=== PATIENT | male | born 1975 | race Caucasian/White ===

== ENCOUNTER 2024-07-10 20:00 | Emergency (ER) | payer MEDICAID, SELFPAY ==
[2024-07-10 20:03] VITALS: BP 158/90; PULSE 99; RESP 16; TEMP 36.7; O2SAT 98
--- OUTSIDE RECORDS SUMMARY | 2024-07-10 20:03 | XMS_ITS | Referral Summary ---
Author Organization [facility] Address [address] [place] [address] Care Team Providers Care Clinical Documentation Nurse Name Role [facility] C Primary Care Pro vider Source Comments [facility],non-[facility] Affiliates and Associated Physician Practices is amultiple site organization consisting of ambulatory clinics and hospital sitesin [place], [place], [place] and [place]. This disclosure is being madepursuant to the Care Everywhere program and may not contain all information available regarding this patient. Last updated 18.[facility] Allergies Active Allergy Reactions Criticality Noted Date Comments Codeine Urticaria Medium 08/31/2018 Morphine Nausea and/or Vomiting 10/10/2017 Pseudoephedrine Base Urticaria Medium 06/02/2017 Medications * Be aware that medications may not be up to date on this document. Alwaysverify current medications with the patient. Medication Sig Dispensed Refills Start Date End Date Status Misc. Devices (CRUTCHES) Use as directed 1 Each 09/07/2017 Active Nebulizers (DME MISC SUPPLY) Use as directed 1 Each 01/12/2018 Active hydrOXYzine hcl (ATARAX) 25 MG tabletIndications:Ra sh and other nonspecific skin eruption Take 1-2 tablets, every six hours, as needed. 90 tablet 2 04/12/2018 Active ivermectin (STROMECTOL) 3 MG tablet 04/19/2018 Active HYDROcodone-acetamin ophen (NORCO) 7.5-325 MG tablet Take 1 tablet by mouth every 6 hours as needed for Pain 60 tablet 11/02/2018 Active HYDROcodone-acetamin ophen (NORCO) 7.5-325 MG tablet Take 1 tablet by mouth every 6 hours as needed for Pain 120 tablet 12/28/2018 Active HYDROcodone-acetamin ophen (NORCO) 10-325 MG tablet Take 1 tablet by mouth every 6 hours as needed for Pain 120 tablet 12/28/2018 Active Active Problems Problem Noted Date Diagnosed Date Acute right ankle pain 09/15/2017 Pain of right foot 09/15/2017 Pes planus of right foot 09/15/2017 Social History Tobacco Use Types Packs/Day Years Used Date Smoking Tobacco: Some Days Cigarettes Smokeless Tobacco: Never Tobacco Cessation:Ready to Q uit: No; Counseling Given: Yes Alcohol Use Standard Drinks/Week Comments No 0 (1 standard drink = 0.6 oz pur e alcohol) Sex and Gender Information Value Date Recorded Sex Assigned at Not on file Gender Identity Not on file Sexual Orientation Not on file Last Filed Vital Signs Vital Sign Reading Time Taken Comments Blood Pressure 147/101 11/16/2018 8:53 AM CDT Pulse 104 11/16/2018 8:53 AM CDT Temperature 36.8 C (98.3 F) 11/16/2018 8:53 AM CDT Respiratory Rate 16 11/16/2018 8:53 AM CDT Oxygen Saturation 100% 10/16/2017 8:30 AM CDT Inhaled Oxygen Concentration - - Weight 129.3 kg (285 lb) 02/11/2019 10:50 AM CDT Height 190.5 cm (6' 3 ) 02/11/2019 10:50 AM CDT Body Mass Index 35.62 02/11/2019 10:50 AM CDT Functional Status Functional Status Response Date of Assess ment Is person deaf or have serious hearing difficult y? No 10/12/2017 Is person blind or have serious difficulty seein g? No 10/12/2017 Does person have serious dif ficulty walking/climbing stairs? Yes 10/12/2017 Does person have difficulty dressing/bathing? Ye s 10/12/2017 Does person have difficulty doing errands alone? Yes 10/12/2017 Cognitive Status Response Date of Assessm ent Does person have difficulty concentrating/remembering/making decisions? No 10/12/2017 Plan of Treatment Not on file Medical Devices Implanted Type Area Soccer Coach Device Identifier Shelf Expiration Date Model / Serial / Lot Flor Cellular Bone Matrix 5cc Implanted:Qty: 1 on 10/12/2017 by Kanu Oliveira DO at [facility] [employer] 02/08/2018 BL-1500-00 2 / / [id number] Description:BL-1500-002. Dep uy Synthes Screw 3.5mm 36mm T15 Cortx Slf-Tap Lopro Implanted:Qty: 1 on 10/12/2017 by Kanu Oliveira DO at [facility] Right: Ankle [employer] [id number] / / Screw 3.5mm 6mm 65mm Ft Hex Sm Bone Riaz Implanted:Qty: 1 on 10/12/2017 by Kanu Oliveira DO at [facility] Right: Ankle [employer] [id number] / / 3.5mm Va-Lcp Medial Column Fusion Plate Implanted:Qty: 1 on 10/12/2017 by Kanu Oliveira DO at [facility] Right: Ankle 02.211.416 / / 3.5mm Va-Lcp Medial Column Fusion Plates, Talus Extension Implanted:Qty: 1 on 10/12/2017 by Kanu Oliveira DO at [facility] Right: Ankle 02.211.420 / / 3.5mm Variable Angle Locking Screws, Self-Tapping, T15 Stardrive Implanted:Qty: 1 on 10/12/2017 by Kanu Oliveira DO at [facility] Right: Ankle [employer] 02.127.132 / / 3.5mm Variable Angle Locking Screws, Self-Tapping, T15 Stardrive Implanted:Qty: 1 on 10/12/2017 by Kanu Oliveira DO at [facility] Right: Ankle [employer] 02.127.148 / / 3.5mm Variable Angle Locking Screws, Self-Tapping, T15 Stardrive Implanted:Qty: 1 on 10/12/2017 by Kanu Oliveira DO at [facility] Right: Ankle [employer] 02.127.160 / / 3.5mm Cortex Screws, Low-Profile Head, Self-Tapping, T15 Stardrive Implanted:Qty: 1 on 10/12/2017 by Kanu Oliveira DO at [facility] Right: Ankle S[employer] 02.206.222 / / Vivigen Cellular Bone Matrix 1cc Implanted:Qty: 1 on 10/12/2017 by Kanu Oliveira DO at [facility] [employer] 01/13/2018 - [id number] Description:[employer] Vivigen Cellular Bone Matrix 1cc Implanted:Qty: 1 on 10/12/2017 by Kanu Oliveira DO at [facility] [employer] 02/08/2018 [id number] Description:[employer] Vivigen Cellular Bone Matrix 1cc Implanted:Qty: 1 on 10/12/2017 by Kanu Oliveira DO at [facility] [employer] 02/08/2018 [id number] Description:[employer] Cannulated Screw Implanted:Qty: 1 on 10/12/2017 by Kanu Oliveira DO at [facility] Right: Ankle fully threaded [id number] / / Screw Bn 3.5mm 30mm Lcp Ss T15 Periart Implanted:Qty: 1 on 10/12/2017 by Kanu Oliveira DO at [facility] Right: Ankle [employer] 02.127.130 / / Screw 3.5mm 40mm T15 Mtphsl Slf-Tap Lck Implanted:Qty: 2 on 10/12/2017 by Kanu Oliveira DO at [facility] Right: Ankle [employer] 02.127.140 / / Explanted Type Area Soccer Coach Device Identifier Shelf Expiration Date Model / Serial / Lot 2.8 Mm Compression Wires, 200mm Implanted:Qty: 2 Explanted:Qty: 2 on 10/12/2017 at [facility] Right: Ankle [employer] 03.118.030 / / Guide Pin Explanted:Qty: 1 on 10/12/2017 at [facility] Right: Ankle [id number] 0 / / Wire K .045in 6in 2 Troc Smth Fx Strl Explanted:Qty: 1 on 10/12/2017 at [facility] Right: Ankle [employer] [id number] / / Advance Directives * Full Code (Latest Code Status on File) Date Activated Date Inactivated Comments 10/12/2017 5:38 PM 10/16/2017 5:10 PM * Full Code Date Activated Date Inactivated Comments 10/12/2017 6:17 AM 10/12/2017 5:38 PM Care Teams Clinical Documentation Nurse Relationship Specialty Start Date End Date [facility], [facility] [address] [place] [address] [phone] PCP - General Mailroom Associate 06/01/17
--- OUTSIDE RECORDS SUMMARY | 2024-07-10 20:03 | XMS_ITS | Encounter Summary ---
Author Organization [facility] Address [address] [place] [address] Care Team Providers Care Stock Patcher Name [facility] C Primary Care Pro vider Ronit Crouch E [employer]ER[employer] DEVELOPER-WELLNESS GUIDE Unavailable Encounter Details Date Type Department Care Team (Late st Contact Info) Description 11/02/2018 Telephone [facility] [address] [place] [address] Kanu Oliveira, DO [address] [facility] [address] [place] [address] Social History Tobacco Use Types Packs/Day Years Used Date Smoking Tobacco: Some Days Cigarettes Smokeless Tobacco: Never Alcohol Use Standard Drinks/Week Comments No 0 (1 standard drink = 0.6 oz pur e alcohol) Sex and Gender Information Value Date Recorded Sex Assigned at Not on file Gender Identity Not on file Sexual Orientation Not on file documented as of this encounter Functional Status Functional Status Response Date of [...] person have difficulty concentrating/remembering/making decisions? No 10/12/2017 documented as of this encounter Miscellaneous Notes * Telephone Encounter - Alcides De Leon - 11/02/2018 1:08 PM CDT Spoke with Dr. Oliveira about patient documented in this encounter Plan of Treatment Not on file documented as of this encounter Visit Diagnoses Diagnosis Arthritis, midfoot- Primary Unspecified arthropathy, ankle and foot documented in this encounter Care Teams Stock Patcher Relationship Specialty Start Date End Date [facility] [address] [place] [address] PCP - General Photography Spotter 06/01/17 Ronit Crouch, E [employer] DEVELOPER-WELLNESS GUIDE [address] [place] [address] PCP - Attributed-[employer] [place] 08/03/20 09/20/22 documented as of this encounter
--- OUTSIDE RECORDS SUMMARY | 2024-07-10 20:03 | XMS_ITS | Patient Health Summary ---
Author Organization [facility] [employer] Address [address] [place] [address] Care Team Providers Care Vehicle Upholsterer Name Role [facility] C Primary Care Pro vider Note from [facility],non-owned Affiliates and Associated Physician Practices is amultiple site organization consisting of ambulatory clinics and hospital sitesin [place], [place], [place] and [place]. This disclosure is being madepursuant to the Care Everywhere program and may not contain all information available regarding this patient. Last updated 18.[facility] Allergies * Codeine(Urticaria) -Medium Criticality * Morphine(Nausea and/or Vomiting) * Pseudoephedrine Base(Urticaria) -Medium Criticality Medications * Be aware that medications may not be up to date on this document. Alwaysverify current medications with the patient. * Misc. Devices (CRUTCHES)(Started 09/07/2017) Use as directed * Nebulizers (DME MISC SUPPLY)(Started 01/12/2018) Use as directed * hydrOXYzine hcl (ATARAX) 25 MG tablet(Started 04/12/2018) Take 1-2 tablets, every six hours, as needed. 2 refills remaining * ivermectin (STROMECTOL) 3 MG tablet(Started 04/19/2018) * HYDROcodone-acetaminophen (NORCO) 7.5-325 MG tablet(Started 11/02/2018) Take 1 tablet by mouth every 6 hours as needed for Pain * HYDROcodone-acetaminophen (NORCO) 7.5-325 MG tablet(Started 12/28/2018) Take 1 tablet by mouth every 6 hours as needed for Pain * HYDROcodone-acetaminophen (NORCO) 10-325 MG tablet(Started 12/28/2018) Take 1 tablet by mouth every 6 hours as needed for Pain Active Problems Problem Noted Date Diagnosed Date [...] Mass Index 35.62 02/11/2019 10:50 AM CDT Medical Devices Implanted Type Area Wooden Frame Builder Device Identifier Shelf Expiration Date Model / Serial / Lot Vivigen Cellular Bone Matrix 5cc Implanted:Qty: 1 on 10/12/2017 by Kanu Oliveira DO at [facility] [employer] 02/08/2018 BL-1500-00 [id number] Description:BL-1500-002. Dep uy Synthes Screw 3.5mm 36mm T15 Cortx Slf-Tap Lopro Implanted:Qty: 1 on 10/12/2017 by Kanu Oliveira DO at [facility] Right: Ankle [employer] [id number] / / Screw 3.5mm 6mm 65mm Ft Hex Sm Bone Riaz Implanted:Qty: 1 on 10/12/2017 by Kanu Oliveira DO at [facility] Right: Ankle [employer]sa [id number] / / 3.5mm Va-Lcp Medial Column Fusion Plate Implanted:Qty: 1 on 10/12/2017 by Kanu Oliveira DO at [facility] Right: Ankle [id number] / / 3.5mm Va-Lcp Medial Column Fusion Plates, Talus Extension Implanted:Qty: 1 on 10/12/2017 by Kanu Oliveira DO at [facility] Right: Ankle [id number] / / 3.5mm Variable Angle Locking Screws, Self-Tapping, T15 Stardrive Implanted:Qty: 1 on 10/12/2017 by Kanu Oliveira DO at [facility] Right: Ankle [employer] Usa 02.127.132 / / 3.5mm Variable Angle Locking Screws, Self-Tapping, T15 Stardrive Implanted:Qty: 1 on 10/12/2017 by Kanu Oliveira DO at [facility] Right: Ankle [employer]sa 02.127.148 / / 3.5mm Variable Angle Locking Screws, Self-Tapping, T15 Stardrive Implanted:Qty: 1 on 10/12/2017 by Kanu Oliveira DO at [facility] Right: Ankle [employer]sa 02.127.160 / / 3.5mm Cortex Screws, Low-Profile Head, Self-Tapping, T15 Stardrive Implanted:Qty: 1 on 10/12/2017 by Kanu Oliveira DO at [facility] Right: Ankle S[employer] Usa [id number] / / Vivigen Cellular Bone Matrix 1cc Implanted:Qty: 1 on 10/12/2017 by Kanu Oliveira DO at [facility] [employer] 01/13/2018 BL-1500-00 [id number] Description:[employer] Vivigen Cellular Bone Matrix 1cc Implanted:Qty: 1 on 10/12/2017 by Kanu Oliveira DO at [facility] [employer] 02/08/2018 BL-1500 [id number] Description:[employer] Vivigen Cellular Bone Matrix 1cc Implanted:Qty: 1 on 10/12/2017 by Kanu Oliveira DO at [facility] [employer] 02/08/2018 BL-1500 [id number] Description:[employer] Cannulated Screw Implanted:Qty: 1 on 10/12/2017 by Kanu Oliveira DO at [facility] Right: Ankle fully threaded [id number] / / Screw Bn 3.5mm 30mm Lcp Ss T15 Periart Implanted:Qty: 1 on 10/12/2017 by Kanu Oliveira DO at [facility] Right: Ankle [employer] Usa 02.127.130 / / Screw 3.5mm 40mm T15 Mtphsl Slf-Tap Lck Implanted:Qty: 2 on 10/12/2017 by Kanu Oliveira DO at [facility] Right: Ankle [employer]sa 02.127.140 / / Explanted Type Area Wooden Frame Builder Device Identifier Shelf Expiration Date Model / Serial / Lot 2.8 Mm Compression Wires, 200mm Implanted:Qty: 2 Explanted:Qty: 2 on 10/12/2017 at [facility] Right: Ankle [employer] Usa [id number] / / Guide Pin Explanted:Qty: 1 on 10/12/2017 at [facility] Right: Ankle [id number] 0 / / Wire K .045in 6in 2 Troc Smth Fx Strl Explanted:Qty: 1 on 10/12/2017 at [facility] Right: Ankle [employer] [id number] / / Procedures * XR FOOT RIGHT 3VW OR MORE(Performed 07/13/2018) Performed for Right foot pain * CT FOOT RIGHT WO CONTRAST(Performed 05/04/2018) Performed for Pes planus of right foot * XR FOOT RIGHT 3VW OR MORE(Performed 04/20/2018) Performed for Right foot pain * PA BIOPSY OF SKIN LESION(Performed 04/12/2018) Performed for Rash and other nonspecific skin eruption * PA BIOPSY, EACH ADDED LESION(Performed 04/12/2018) Performed for Rash and other nonspecific skin eruption * DERMATOPATHOLOGY(Performed 04/12/2018) Performed for Rash and other nonspecific skin eruption * XR FOOT RIGHT 3VW OR MORE(Performed 02/14/2018) Performed for Pes planus of right foot * XR FOOT RIGHT 3VW OR MORE(Performed 01/12/2018) Performed for Pain of right foot * XR FOOT RIGHT 3VW OR MORE(Performed 12/01/2017) Performed for Right foot pain * XR FOOT RIGHT 3VW OR MORE(Performed 11/03/2017) Performed for Right foot pain * BASIC METABOLIC PANEL (CALCIUM TOTAL)(Performed 10/16/2017) Performed for Acute right ankle pain * CBC W/O DIFFERENTIAL(Performed 10/16/2017) Performed for Acute right ankle pain * BASIC METABOLIC PANEL (CALCIUM TOTAL)(Performed 10/15/2017) Performed for Acute right ankle pain * CBC W/O DIFFERENTIAL(Performed 10/15/2017) Performed for Acute right ankle pain * BASIC METABOLIC PANEL (CALCIUM TOTAL)(Performed 10/14/2017) Performed for Acute right ankle pain * CBC W/O DIFFERENTIAL(Performed 10/14/2017) Performed for Acute right ankle pain * BASIC METABOLIC PANEL (CALCIUM TOTAL)(Performed 10/13/2017) Performed for Acute right ankle pain * CBC W/O DIFFERENTIAL(Performed 10/13/2017) Performed for Acute right ankle pain * PULSE OXIMETRY, CONTINUOUS(Performed 10/12/2017) * XR FOOT RIGHT 3VW OR MORE(Performed 10/12/2017) Performed for Pes planus of right foot * FL ERICA SURGERY(Performed 10/12/2017) Performed for Acute right ankle pain * GRAFT BONE ILIAC(Performed 10/12/2017) Performed for Pes planus of right foot * ARTHRODESIS/FUSION TARSOMETATARSAL (FOOT)(Performed 10/12/2017) Performed for Pes planus of right foot * ENDOTRACHEAL TUBE NOTE(Performed 10/12/2017) * XR ANKLE RIGHT 3VW OR MORE(Performed 09/07/2017) Performed for Swelling of limb * XR FOOT RIGHT 3VW OR MORE(Performed 06/02/2017) Performed for Pain in joint involving right ankle and foot Results * XR FOOT RIGHT 3VW OR MORE (07/13/2018 9:50 AM ENDLESS TRACK VEHICLE SUPERVISOR) Only the most recent of8 resultswithin the time period is included. Anatomical Region Laterality Modality Ankle / Foot Radiographic Adore ging 07/13/2018 9:56 AM ENDLESS TRACK VEHICLE SUPERVISOR Impressions 07/13/2018 9:58 AM ENDLESS TRACK VEHICLE SUPERVISOR Extensive medial midfoot and hindfoot fixation and posterior subtalar arthrodesis without evidence of instrumentation failure. Reading Radiologist: David Ojeda MD on 07/13/2018 at 9:58 AM Narrative 07/13/2018 9:58 AM ENDLESS TRACK VEHICLE SUPERVISOR Examination: Right foot 3 views History: Right foot pain Findings: 3 views of the right foot were performed with comparison made to 04/20/2018. Medial mid foot fixation is again noted with a fixation plate extending from the talonavicular joint of the first metatarsal as well as a medial plate extending from the medial hindfoot to the midfoot. Instrumented posterior subtalar arthrodesis is also noted. There is no acute fracture. There is a first metatarsal head bunion and mild great toe osteoarthritis. Procedure Note David Ojeda MD - 07/13/2018 Examination: Right foot 3 views History: Right foot pain Findings: 3 views of the right foot were performed with comparison made to 04/20/2018. Medial mid foot fixation is again noted with a fixation plate extending from the talonavicular joint of the first metatarsal as well as a medial plate extending from the medial hindfoot to the midfoot. Instrumented posterior subtalar arthrodesis is also noted. There is no acute fracture. There is a first metatarsal head bunion and mild great toe osteoarthritis. IMPRESSION Extensive medial midfoot and hindfoot fixation and posterior subtalar arthrodesis without evidence of instrumentation failure. Reading Radiologist: David Ojeda MD on 07/13/2018 at 9:58 AM Kanu Oliveira DO DIAGNOSTIC IMAGING O RDERABLES * CT FOOT RIGHT WO CONTRAST (05/04/2018 7:58 AM ENDLESS TRACK VEHICLE SUPERVISOR) Anatomical Region Laterality Modality Computed Tomogra phy 05/04/2018 9:17 AM ENDLESS TRACK VEHICLE SUPERVISOR Impressions 05/06/2018 5:52 PM ENDLESS TRACK VEHICLE SUPERVISOR 1. Partial bony fusion of the talocalcaneal joint. No evidence of hardware loosening. 2. Fusion of the medial mid foot tarsals and metatarsals 3. Swelling over the dorsum of the foot. Reading Radiologist: Antony Obregon MD on 05/06/2018 at 5:52 PM Narrative 05/06/2018 5:52 PM ENDLESS TRACK VEHICLE SUPERVISOR CT right foot, noncontrast DATE: 05/04/2018. 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 Fusion in October 2017. TECHNIQUE: Multidetector nonenhanced CT through the right foot and ankle with triplanar reformations. COMPARISONS: Recent foot plain films. FINDINGS: A lag screw traverses the tibiotalar joint and appears intact and without surrounding loosening. The joint space has hypertrophic and sclerotic bone indicating healing. A serpiginous lucency is noted between portions of the talus and calcaneus. However there appear to be a few areas of partial solid bony fusion as seen on the coronal views. Evaluation is somewhat limited by artifact from the adjacent hardware. Additional medial foot fusion hardware extends from the base of the first metatarsal into the proximal foot and is anchored with numerous screws. No loosening is noted around the hardware and there is no evidence of hardware failure bony fusion is noted between the cuboid and medial cuneiform. There is likely bony fusion of the medial cuneiform with the first metatarsal but the joint is partially obscured by artifact from metal hardware. There is no fracture. The phalanges remain intact. There is soft tissue edema over the dorsum of the foot but no fluid collection. There is localized soft tissue swelling or scarring in the anterior portion of the ankle. Procedure Note Antony Obregon MD - 05/06/2018 CT right foot, noncontrast DATE: 05/04/2018. 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 Fusion in October 2017. TECHNIQUE: Multidetector nonenhanced CT through the right foot and ankle with triplanar reformations. COMPARISONS: Recent foot plain films. FINDINGS: A lag screw traverses the tibiotalar joint and appears intact and without surrounding loosening. The joint space has hypertrophic and sclerotic bone indicating healing. A serpiginous lucency is noted between portions of the talus and calcaneus. However there appear to be a few areas of partial solid bony fusion as seen on the coronal views. Evaluation is somewhat limited by artifact from the adjacent hardware. Additional medial foot fusion hardware extends from the base of the first metatarsal into the proximal foot and is anchored with numerous screws. No loosening is noted around the hardware and there is no evidence of hardware failure bony fusion is noted between the cuboid and medial cuneiform. There is likely bony fusion of the medial cuneiform with the first metatarsal but the joint is partially obscured by artifact from metal hardware. There is no fracture. The phalanges remain intact. There is soft tissue edema over the dorsum of the foot but no fluid collection. There is localized soft tissue swelling or scarring in the anterior portion of the ankle. IMPRESSION 1. Partial bony fusion of the talocalcaneal joint. No evidence of hardware loosening. 2. Fusion of the medial mid foot tarsals and metatarsals 3. Swelling over the dorsum of the foot. Reading Radiologist: Antony Obregon MD on 05/06/2018 at 5:52 PM Percy Velasquez MD CT ORDERABLES * PA BIOPSY, EACH ADDED LESION, PA BIOPSY OF SKIN LESION (04/12/2018 3:17 PM ENDLESS TRACK VEHICLE SUPERVISOR) Narrative Donna Sanford MD - 04/12/2018 3:17 PM ENDLESS TRACK VEHICLE SUPERVISOR Josiah Godwin MD 04/12/2018 2:01 PM Risks, benefits and alternatives to punch biopsy were discussed with the patient. Verbal consent was obtained. Location: R superior and inferior elbow Punch biopsy: 4mm Skin prep: Alcohol Anesthesia: 1% lidocaine with epinephrine Closure: 4-0 nylon suture Dressing and wound care discussed. Patient agrees to phone call for results and message if not available. Josiah Godwin M.D. PGY-3 dermatology resident Donna Sanford MD PROCEDURE/MINOR CALIN GICAL ORDERABLES * DERMATOPATHOLOGY (04/12/2018 12:00 AM ENDLESS TRACK VEHICLE SUPERVISOR) Case Report Dermatopathology Report Case: [id number] Authorizing Provider: Donna Sanford MD Collected: 04/12/2018 12:00 AM Ordering Location: [facility] Received: 04/13/2018 07:44 AM Dermatology Pathologist: Marnie Govea MD Specimens: A) - Skin, right superior elbow B) - Skin, right inferior elbow 1:11 PM ENDLESS TRACK VEHICLE SUPERVISOR DERMATOPATHOLOGY LABORATORY Final Diagnosis Specimen A. SKIN, right superior elbow: SUPERFICIAL AND DEEP PERIVASCULAR LYMPHOCYTIC INFILTRATE WITH EOSINOPHILS (L98.9) (see microscopic description and comment) Specimen B. SKIN, right inferior elbow: EPIDERMAL NECROSIS SUGGESTIVE OF EXCORIATION (L98.499) SUPERFICIAL PERIVASCULAR LYMPHOCYTIC INFILTRATE WITH EOSINOPHILS (L27.0) (see microscopic description and comment) 1:11 PM [facility] DERMATOPATHOLOGY LABORATORY Clinical History A-B: LP vs ACD vs scabies vs prurigo simplex vs other. 1:11 PM [facility] DERMATOPATHOLOGY LABORATORY Gross Description Specimen A: Received is one formalin filled container labeled with the patient's name and designated right superior elbow. The specimen consists of a punch biopsy measuring [id number], bisected. Jar 0. Specimen B: Received is one formalin filled container labeled with the patient's name and designated right inferior elbow. The specimen consists of a punch biopsy measuring [id number], bisected. Jar 0. 1:11 PM [facility] DERMATOPATHOLOGY LABORATORY Microscopic Description Specimen A. SKIN, right superior elbow: The epidermis is unremarkable. There is a superficial and deep perivascular and interstitial infiltrate of lymphocytes with numerous eosinophils. COMMENT: The differential diagnosis for these histologic findings includes an arthropod bite reaction, a drug eruption, and less likely a contact dermatitis given the lack of epidermal change. Clinicopathologic correlation is recommended. Specimen B. SKIN, right inferior elbow: The epidermis is focally necrotic and covered with a scale-crust. There is fibrin at the base. Sections show a largely superficial perivascular and interstitial infiltrate including lymphocytes and eosinophils. COMMENT: See comment for Specimen A. 1:11 PM [facility] DERMATOPATHOLOGY LABORATORY Disclaimer An external and internal positive and negative controls are appropriate for the histochemical, immunohistochemical and immunofluorescence stain(s) in this case (if any), except where stated explicitly. The performance characteristics of the stain(s) cited in this report were developed and its performance characteristic determined by the Dermatopathology Laboratory at [facility]. These tests need not be, and therefore are not, approved by the [place] Food and Drug Administration. The tests are used for clinical purposes. Billing Codes Specimen Charges Stain Charges 32280 66787 1 1 1:11 PM [facility] DERMATOPATHOLOGY LABORATORY Embedded Images 11/12/201 8 1:11 PM ENDLESS TRACK VEHICLE SUPERVISOR DERMATOPATHOLOGY LABORATORY Pathology/Cytology TISSUE SPECIMEN FROM SKIN / Unknown 04/12/2018 04/13/2018 7:44 AM ENDLESS TRACK VEHICLE SUPERVISOR Miscellaneous samples (specimen) TISSUE SPECIMEN FROM SKIN / Unknown 04/12/2018 04/13/2018 7:44 AM ENDLESS TRACK VEHICLE SUPERVISOR Donna Sanford MD LAB - PATHOLOGY/CYT OLOGY ORDERABLES DERMATOPATHOLOGY LABORATORY [facility] - Department of Dermatology [address] [place] [address], 5[address] Floor Lab [address] [phone] * (ABNORMAL) CBC W/O DIFFERENTIAL (10/16/2017 3:39 AM CDT) Only the most recent of4 resultswithin the time period is included. WBC 11.2(H) 3.5 - 10.5 10 3/uL 10/16/2017 4:01 AM [facility] RBC 4.08(L) 4.30 - 5.70 10 6/uL 10/16/2017 4:01 AM [facility] Hemoglobin 12.6(L) 13.5 - 17.5 g/dL 10/16/2017 4:01 AM [facility] Hematocrit 37.3(L) 39.0 - 50.0 % 10/16/2017 4:01 AM [facility] MCV 91.4 81.0 - 97.0 fL 10/16/2017 4:01 AM [facility] MCH 30.9 28.0 - 34.0 pg 10/16/2017 4:01 AM [facility] MCHC 33.8 32.0 - 36.0 g/dL 10/16/2017 4:01 AM [facility] Platelet Count 254 150 - 400 10 3/uL 10/16/2017 4:01 AM [facility] RDW-SD 42.8 36.0 - 50.0 fL 10/16/2017 4:01 AM [facility] RDW-CV 12.8 11.2 - 14.8 % 10/16/2017 4:01 AM [facility] MPV 9.6 9.3 - 12.8 fL 10/16/2017 4:01 AM [facility] Blood BLOOD SPECIMEN / Unknown 10/16/2017 3:39 AM CDT 10/16/2017 3:47 AM CDT Tj Montilla MD LAB - HEMATOLOGY ORD ERABLES [facility] [address] [phone] * BASIC METABOLIC PANEL (CALCIUM TOTAL) (10/16/2017 3:39 AM CDT) Only the most recent of4 resultswithin the time period is included. BUN 10 7 - 26 mg/dL 10/16/2017 4:20 AM [facility] Creatinine 0.9 0.6 - 1.2 mg/dL 10/16/2017 4:20 AM [facility] Sodium 139 136 - 145 mmol/L 10/16/2017 4:20 AM [facility] Potassium 3.8 3.5 - 4.5 mmol/L 10/16/2017 4:20 AM [facility] Chloride 104 98 - 107 mmol/L 10/16/2017 4:20 AM [facility] CO2 23 22 - 29 mmol/L 10/16/2017 4:20 AM [facility] Glucose 106 70 - 115 mg/dL 10/16/2017 4:20 AM [facility] Calcium 8.6 8.4 - 10.2 mg/dL 10/16/2017 4:20 AM [facility] Anion Gap 16 8 - 18 10/16/2017 4:20 AM [facility] BUN/Creatinine Ratio 11 7 - 23 10/16/2017 4:20 AM [facility] Osmolality Calculated 287 270 - 300 mOsm/kg 10/16/2017 4:20 AM [facility] eGFR >60 >60 mL/min/1.7 3 m2 10/16/2017 4:20 AM [facility] Blood BLOOD SPECIMEN / Unknown 10/16/2017 3:39 AM CDT 10/16/2017 3:47 AM CDT Tj Montilla MD LAB - CHEMISTRY [facility]BERTO GALARZA [address] [phone] * FL ERICA SURGERY (10/12/2017 2:44 PM CDT) Narrative [facility] - 10/12/2017 2:44 PM CDT Fluoroscopy was used for this exam in the OR. Please see the Operative report. Kanu Oliveira DO FLUOROSCOPY ORDERABL ES Performing Organization Address City/[facility]/ZIP Co de Phone Number [facility] * XR ANKLE RIGHT 3VW OR MORE (09/07/2017 10:17 PM CDT) Anatomical Region Laterality Modality Lower Extremity Radiographic Adore ging 09/08/2017 7:49 AM CDT Impressions 09/08/2017 7:51 AM CDT 1. No fracture 2. 2 conference of soft tissue swelling. 3. Pes planus Narrative 09/08/2017 7:51 AM CDT Right ankle, 3 views DATE: 09/07/2017. INDICATION: Progressive ankle pain and swelling. Findings: The soft tissues are swollen circumferentially around the ankle. There is no fracture or dislocation. The tibiotalar articulation is normally aligned but there is mild flattening of the talar articular surface compatible with chronic degenerative change. Also noted is flattening of the arch of the foot. There is a degenerative cyst in the distal fibula. Procedure Note Antony Obregon MD - 09/08/2017 Right ankle, 3 views DATE: 09/07/2017. INDICATION: Progressive ankle pain and swelling. Findings: The soft tissues are swollen circumferentially around the ankle. There is no fracture or dislocation. The tibiotalar articulation is normally aligned but there is mild flattening of the talar articular surface compatible with chronic degenerative change. Also noted is flattening of the arch of the foot. There is a degenerative cyst in the distal fibula. IMPRESSION 1. No fracture 2. 2 conference of soft tissue swelling. 3. Pes planus Ryland Andrews DO DIAGNOSTIC IMAGING O RDERABLES Care Teams Vehicle Upholsterer Relationship Specialty Start Date End Date [facility], [facility] [address] [place] [phone] PCP - General General Manager Road Production 06/01/17
--- OUTSIDE RECORDS SUMMARY | 2024-07-10 20:03 | XMS_ITS | Clinical Summary ---
Author Organization [facility] [employer] Address [address] [facility] [place] [address] Care Team Providers Care Staff Genetic Counselor Name Role Phone [facility] C Primary Care Pro vider Source Comments [facility] Affiliates and Associated Physician Practices is amultiple site organization consisting of ambulatory clinics and hospital sitesin [place], [place], [place] and [place]. This disclosure is being madepursuant to the Care Everywhere program and may not contain all information available regarding this patient. Last updated 18.[facility] [employer] Allergies Active Allergy Reactions Criticality Noted Date [...] 09/15/2017 Pes planus of right foot 09/15/2017 Family History Medical History Relation Name Comments Asthma Neg Hx CVA Neg Hx Cancer - Breast Neg Hx Cancer - Other Neg Hx Cancer - Skin, Melanoma Neg Hx Cancer - Skin, Non Melanoma Neg Hx Eczema Neg Hx Hemophilia Neg Hx Psoriasis Neg Hx Social History Tobacco Use Types Packs/Day Years [...] Mass Index 35.62 02/11/2019 10:50 AM CDT Plan of Treatment Health Maintenance Due Date Last Done Comments COLOGUARD (AGES 45-75) - COL ON CA SCREENING 1975 COLON MONITORING 1975 COLONOSCOPY - COLON CA SCREENING 1975 CT COLONOGRAPHY - COLON CA SCREENING 1975 Colorectal Cancer Screening 1975 FIT - COLON CA SCREENING 1975 FLEX SIG - COLON CA SCREENING 1975 LIPID TESTING 1975 Opioid Medication Agreement - Annual 1975 HIV SCREENING 1990 HEPATITIS C SCREENING 02/21/1993 DTAP/TDAP/TD VACCINES (1 - Tdap) 1994 HEPATITIS B VACCINE (1 of 3 - 19+ 3-dose series) 1994 PNEUMOCOCCAL VACCINE (1 of 2 - PCV) 1994 COVID-19 VACCINE (1 - 2023-2 5 season) 2024 INFLUENZA VACCINE (#1) 2024 DEPRESSION SCREENING 06/05/2024 ZOSTER VACCINE (1 of 2) 2025 HIB VACCINE Aged Out No longer eligi ble based on patient's age to complete this topic HPV VACCINE Aged Out No longer eligi ble based on patient's age to complete this topic MENINGOCOCCAL (Group B) VACCINE Aged Out No longer eligible based on patient's age to complete this topic MENINGOCOCCAL VACCINE Aged Out No hermilo doug eligible based on patient's age to complete this topic Medical Devices Implanted Type Area Advertising Analyst Device Identifier Shelf Expiration Date Model / Serial / Lot Vivigen Cellular Bone Matrix 5cc Implanted:Qty: 1 on 10/12/2017 by Kanu Oliveira DO at [facility] [employer] 02/08/2018 BL-1500-00 2 / / [id number] Description:BL-1500-002. Dep uy Synthes Screw 3.5mm 36mm T15 Cortx Slf-Tap Lopro Implanted:Qty: 1 on 10/12/2017 by Kanu Oliveira DO at [facility] Right: Ankle Synthes Usa 02.206.236 / / Screw 3.5mm 6mm 65mm Ft Hex Sm Bone Riaz Implanted:Qty: 1 on 10/12/2017 by Kanu Oliveira DO at [facility] Right: Ankle Synthes Usa 204.865 / / 3.5mm Va-Lcp Medial Column Fusion Plate Implanted:Qty: 1 on 10/12/2017 by Kanu Oliveira DO at [facility] Right: Ankle 02.211.416 / / 3.5mm Va-Lcp Medial Column Fusion Plates, Talus Extension Implanted:Qty: 1 on 10/12/2017 by Kanu Oliveira DO at [facility] Right: Ankle 02.211.420 / / 3.5mm Variable Angle Locking Screws, Self-Tapping, T15 Stardrive Implanted:Qty: 1 on 10/12/2017 by Kanu Oliveira DO at [facility] Right: Ankle Synthes Usa 02.127.132 / / 3.5mm Variable Angle Locking Screws, Self-Tapping, T15 Stardrive Implanted:Qty: 1 on 10/12/2017 by Kanu Oliveira DO at [facility] Right: Ankle Synthes Usa 02.127.148 / / 3.5mm Variable Angle Locking Screws, Self-Tapping, T15 Stardrive Implanted:Qty: 1 on 10/12/2017 by Kanu Oliveira DO at [facility] Right: Ankle Synthes Usa 02.127.160 / / 3.5mm Cortex Screws, Low-Profile Head, Self-Tapping, T15 Stardrive Implanted:Qty: 1 on 10/12/2017 by Kanu Oliveira DO at [facility] Right: Ankle Synthes Usa 02.206.222 / / Vivigen Cellular Bone Matrix 1cc Implanted:Qty: 1 on 10/12/2017 by Kanu Oliveira DO at [facility] [employer] 01/13/2018 BL-1500 [id number] Description:[employer] Vivigen Cellular Bone Matrix 1cc Implanted:Qty: 1 on 10/12/2017 by Kanu Oliveira DO at [facility] [employer] 02/08/2018 BL-1500 [id number] 00 Description:[employer] Vivigen Cellular Bone Matrix 1cc Implanted:Qty: 1 on 10/12/2017 by Kanu Oliveira DO at [facility] [employer] 02/08/2018 BL-150000 [id number] 01 Description:[employer] Cannulated Screw Implanted:Qty: 1 on 10/12/2017 by Kanu Oliveira DO at [facility] Right: Ankle fully threaded 1147-095-6 7 / / Screw Bn 3.5mm 30mm Lcp Ss T15 Periart Implanted:Qty: 1 on 10/12/2017 by Kanu Oliveira DO at [facility] Right: Ankle Synthes Usa 02.127.130 / / Screw 3.5mm 40mm T15 Mtphsl Slf-Tap Lck Implanted:Qty: 2 on 10/12/2017 by Kanu Oliveira DO at [facility] Right: Ankle Synthes Usa 02.127.140 / / Explanted Type Area Advertising Analyst Device Identifier Shelf Expiration Date Model / Serial / Lot 2.8 Mm Compression Wires, 200mm Implanted:Qty: 2 Explanted:Qty: 2 on 10/12/2017 at [facility] Right: Ankle Synthes Usa 03.118.030 / / Guide Pin Explanted:Qty: 1 on 10/12/2017 at [facility] Right: Ankle 1147-088-0 0 / / Wire K .045in 6in 2 Troc Smth Fx Strl Explanted:Qty: 1 on 10/12/2017 at [facility] Right: Ankle [employer] [id number] / / Advance Directives * Full Code (Latest Code Status on File) Date Activated Date Inactivated Comments 10/12/2017 5:38 PM 10/16/2017 5:10 PM * Full Code Date Activated Date Inactivated Comments 10/12/2017 6:17 AM 10/12/2017 5:38 PM Care Teams Staff Genetic Counselor Relationship Specialty Start Date End Date [facility] [address] [place] [phone] PCP - General Tacker Off 06/01/17
--- OUTSIDE RECORDS SUMMARY | 2024-07-10 20:03 | XMS_ITS | Encounter Summary ---
Author Organization [facility] Address [address] [place] [address] Care Team Providers Care Galley Worker Name Role Phone [facility] Primary Care Pro vider Ronit Crouch MARINE HABITAT RESOURCE SPECIALIST-QUALITATIVE RESEARCHER Unavailable Reason for Visit * Reason Onset Date Comments Question 10/05/2018 Encounter Details Date Type Department Care Team (Late st Contact Info) Description 10/05/2018 Telephone [facility] [address] [place] [address] Kanu Oliveira, DO [address] [place] [address] Question Social History Tobacco Use Types Packs/Day Years [...] Telephone Encounter - Alcides De Leon - 10/05/2018 2:22 PM CDT Patient had to leave for for work. Requesting a callback documented in this encounter Plan of Treatment Not on file documented as of this encounter Visit Diagnoses Not on filedocumented in this encounter Care Teams Galley Worker Relationship Specialty Start Date End Date [facility] [address] [place] [phone] PCP - General Spanish Linguist 06/01/17 Ronit Crouch, MARINE HABITAT RESOURCE SPECIALIST-QUALITATIVE RESEARCHER [address] [place] [phone] PCP - Attributed-[employer] [place] 08/03/20 09/20/22 documented as of this encounter
--- NOTE | 2024-07-10 21:30 | PC.NURSE ---
Patient approached triage desk stating that he was leaving due to wait times. Pt advised to be seen at nearest facility if he deems it necessary.
--- OUTSIDE RECORDS SUMMARY | 2024-07-10 21:56 | XMS_ITS | Clinical Summary ---
Author Organization [facility] [employer] Address [address] [place] [address] Care Team Providers Care Cable Television Line Technician Name Role Phone [facility] C Primary Care Pro vider Source Comments [facility] Affiliates and Associated Physician Practices is amultiple site organization consisting of ambulatory clinics and hospital sitesin [place], [place]. This disclosure is being madepursuant to the Care Everywhere program and may not contain all information available regarding this patient. Last updated 18.[facility] [employer] Allergies Active Allergy Reactions Criticality Noted Date [...] this topic Medical Devices Implanted Type Area Incident Response Coordinator Device Identifier Shelf Expiration Date Model / Serial / Lot Vivigen Cellular Bone Matrix 5cc Implanted:Qty: 1 on 10/12/2017 by Kanu Oliveira DO at [facility] [employer] 02/08/2018 BL-1500-00 2 / / [id number] Description:BL-1500-002. Dep uy Synthes Screw 3.5mm 36mm T15 Cortx Slf-Tap Lopro Implanted:Qty: 1 on 10/12/2017 by Kanu Oliveira DO at [facility] Right: Ankle Synthes Usa 02.206.236 / / Screw 3.5mm 6mm 65mm Ft Hex Sm Bone Riaz Implanted:Qty: 1 on 10/12/2017 by Kanu Oliveira DO at [facility] Right: Ankle Synthes Usa 204.865 / / 3.5mm Va-Lcp Medial Column Fusion Plate Implanted:Qty: 1 on 10/12/2017 by Kanu Oliveira DO at [facility] Right: Ankle 02.211.416 / / 3.5mm Va-Lcp Medial Column Fusion Plates, Talus Extension Implanted:Qty: 1 on 10/12/2017 by Kanu Oliveira DO at [facility] Right: Ankle 02.211.420 / / 3.5mm Variable Angle Locking Screws, Self-Tapping, T15 Stardrive Implanted:Qty: 1 on 10/12/2017 by Kanu Oliveira DO at [facility] Right: Ankle Synthes Usa 02.127.132 / / 3.5mm Variable Angle Locking Screws, Self-Tapping, T15 Stardrive Implanted:Qty: 1 on 10/12/2017 by Kanu Oliveira DO at [facility] Right: Ankle Synthes Usa 02.127.148 / / 3.5mm Variable Angle Locking Screws, Self-Tapping, T15 Stardrive Implanted:Qty: 1 on 10/12/2017 by Kanu Oliveira DO at [facility] Right: Ankle Synthes Usa 02.127.160 / / 3.5mm Cortex Screws, Low-Profile Head, Self-Tapping, T15 Stardrive Implanted:Qty: 1 on 10/12/2017 by Kanu Oliveira DO at [facility] Right: Ankle Synthes Usa 02.206.222 / / Vivigen Cellular Bone Matrix 1cc Implanted:Qty: 1 on 10/12/2017 by Kanu Oliveira DO at [facility] [employer] 01/13/2018 BL-1500 [id number] 16 Description:[employer] Vivigen Cellular Bone Matrix 1cc Implanted:Qty: 1 on 10/12/2017 by Kanu Oliveira DO at [facility] [employer] 02/08/2018 BL-1500 [id number] 00 Description:[employer] Vivigen Cellular Bone Matrix 1cc Implanted:Qty: 1 on 10/12/2017 by Kanu Oliveira DO at [facility] [employer] 02/08/2018 BL-150000 [id number] 01 Description:[employer] Cannulated Screw Implanted:Qty: 1 on 10/12/2017 by Kanu Oliveira DO at [facility] Right: Ankle fully threaded 1147-095-6 7 / / Screw Bn 3.5mm 30mm Lcp Ss T15 Periart Implanted:Qty: 1 on 10/12/2017 by Kanu Oliveira DO at [facility] Right: Ankle Synthes Usa 02.127.130 / / Screw 3.5mm 40mm T15 Mtphsl Slf-Tap Lck Implanted:Qty: 2 on 10/12/2017 by Kanu Oliveira DO at [facility] Right: Ankle Synthes Usa 02.127.140 / / Explanted Type Area Incident Response Coordinator Device Identifier Shelf Expiration Date Model / Serial / Lot 2.8 Mm Compression Wires, 200mm Implanted:Qty: 2 Explanted:Qty: 2 on 10/12/2017 at [facility] Right: Ankle [employer]sa 03.118.030 / / Guide Pin Explanted:Qty: 1 on 10/12/2017 at [facility] Right: Ankle 1147-088-0 0 / / Wire K .045in 6in 2 Troc Smth Fx Strl Explanted:Qty: 1 on 10/12/2017 at [facility] Right: Ankle [employer] [id number] / / Advance Directives * Full Code (Latest Code Status on File) Date Activated Date Inactivated Comments 10/12/2017 5:38 PM 10/16/2017 5:10 PM * Full Code Date Activated Date Inactivated Comments 10/12/2017 6:17 AM 10/12/2017 5:38 PM Care Teams Cable Television Line Technician Relationship Specialty Start Date End Date [facility] [address] [place] [phone] PCP - General Bell Spinner 06/01/17
--- OUTSIDE RECORDS SUMMARY | 2024-07-10 21:56 | XMS_ITS | Patient Health Summary ---
Author Organization [facility] [employer] Address [address] [place] [address] Care Team Providers Care Educational Administrator Name Role Phone [facility] C Primary Care Pro vider Note from [facility],non-owned Affiliates and Associated Physician Practices is amultiple site organization consisting of ambulatory clinics and hospital sitesin [place], [place], [place] and [place]. This disclosure is being madepursuant to the Care Everywhere program and may not contain all information available regarding this patient. Last updated 18.[facility] Allergies * Codeine(Urticaria) -Medium Criticality * [...] AM CDT Medical Devices Implanted Type Area Sales Marketing Director Device Identifier Shelf Expiration Date Model / Serial / Lot Vivigen Cellular Bone Matrix 5cc Implanted:Qty: 1 on 10/12/2017 by Kanu Oliveira DO at [facility] [employer] 02/08/2018 BL-1500-00 [id number] Description:BL-1500-002. Dep uy Synthes Screw 3.5mm 36mm T15 Cortx Slf-Tap Lopro Implanted:Qty: 1 on 10/12/2017 by Kanu Oliveira DO at [facility] Right: Ankle Synthes Usa 02.206.236 / / Screw 3.5mm 6mm 65mm Ft Hex Sm Bone Riaz Implanted:Qty: 1 on 10/12/2017 by Kanu Oliveira DO at [facility] Right: Ankle Synthes Usa 204.865 / / 3.5mm Va-Lcp Medial Column Fusion Plate Implanted:Qty: 1 on 10/12/2017 by Kanu Oliveira DO at [facility] Right: Ankle 02.211.416 / / 3.5mm Va-Lcp Medial Column Fusion Plates, Talus Extension Implanted:Qty: 1 on 10/12/2017 by Kanu Oliveira DO at [facility] Right: Ankle 02.211.420 / / 3.5mm Variable Angle Locking Screws, Self-Tapping, T15 Stardrive Implanted:Qty: 1 on 10/12/2017 by Kanu Oliveira DO at [facility] Right: Ankle Synthes Usa 02.127.132 / / 3.5mm Variable Angle Locking Screws, Self-Tapping, T15 Stardrive Implanted:Qty: 1 on 10/12/2017 by Kanu Oliveira DO at [facility] Right: Ankle Synthes Usa 02.127.148 / / 3.5mm Variable Angle Locking Screws, Self-Tapping, T15 Stardrive Implanted:Qty: 1 on 10/12/2017 by Kanu Oliveira DO at [facility] Right: Ankle Synthes Usa 02.127.160 / / 3.5mm Cortex Screws, Low-Profile Head, Self-Tapping, T15 Stardrive Implanted:Qty: 1 on 10/12/2017 by Kanu Oliveira DO at [facility] Right: Ankle Synthes Usa 02.206.222 / / Vivigen Cellular Bone Matrix 1cc Implanted:Qty: 1 on 10/12/2017 by Kanu Oliveira DO at [facility] [employer] 01/13/2018 BL-1500-00 [id number] Description:Dep[employer] S[employer]s Vivigen Cellular Bone Matrix 1cc Implanted:Qty: 1 on 10/12/2017 by Kanu Oliveira DO at [facility] [employer] 02/08/2018 BL-1500 [id number] Description:Dep[employer] S[employer]s Vivigen Cellular Bone Matrix 1cc Implanted:Qty: 1 on 10/12/2017 by Kanu Oliveira DO at [facility] [employer] 02/08/2018 BL-1500 [id number] Description:Dep[employer] S[employer]s Cannulated Screw Implanted:Qty: 1 on 10/12/2017 by Kanu Oliveira DO at [facility] Right: Ankle fully threaded [id number] 7 / / Screw Bn 3.5mm 30mm Lcp Ss T15 Periart Implanted:Qty: 1 on 10/12/2017 by Kanu Oliveira DO at [facility] Right: Ankle Synthes Usa 02.127.130 / / Screw 3.5mm 40mm T15 Mtphsl Slf-Tap Lck Implanted:Qty: 2 on 10/12/2017 by Kanu Oliveira DO at [facility] Right: Ankle Synthes Usa 02.127.140 / / Explanted Type Area Sales Marketing Director Device Identifier Shelf Expiration Date Model / Serial / Lot 2.8 Mm Compression Wires, 200mm Implanted:Qty: 2 Explanted:Qty: 2 on 10/12/2017 at [facility] Right: Ankle Synthes Usa 03.118.030 / / Guide Pin Explanted:Qty: 1 on 10/12/2017 at [facility] Right: Ankle 1147-088-0 0 / / Wire K .045in 6in 2 Troc Smth Fx Strl Explanted:Qty: 1 on 10/12/2017 at [facility] Right: Ankle [employer] 1600-645 / / Procedures * XR FOOT RIGHT 3VW OR MORE(Performed 07/13/2018) Performed for Right foot pain * CT FOOT RIGHT WO CONTRAST(Performed 05/04/2018) Performed for Pes planus of right foot * XR FOOT RIGHT 3VW OR MORE(Performed 04/20/2018) Performed for Right foot pain * WY BIOPSY OF SKIN LESION(Performed 04/12/2018) Performed for Rash and other nonspecific skin eruption * WY BIOPSY, EACH ADDED LESION(Performed 04/12/2018) Performed for [...] RIGHT 3VW OR MORE (07/13/2018 9:50 AM [facility]) Only the most recent of8 resultswithin the time period is included. Anatomical Region Laterality Modality Ankle / Foot Radiographic Adore ging 07/13/2018 9:56 AM [facility] Impressions 07/13/2018 9:58 AM [facility] Extensive medial midfoot and hindfoot fixation and posterior subtalar arthrodesis without evidence of instrumentation failure. Reading Radiologist: David Ojeda MD on 07/13/2018 at 9:58 AM Narrative 07/13/2018 9:58 AM [facility] Examination: Right foot 3 views History: Right [...] FOOT RIGHT WO CONTRAST (05/04/2018 7:58 AM [facility]) Anatomical Region Laterality Modality Computed Tomogra phy 05/04/2018 9:17 AM [facility] Impressions 05/06/2018 5:52 PM [facility] 1. Partial bony fusion of the talocalcaneal joint. No evidence of hardware loosening. 2. Fusion of the medial mid foot tarsals and metatarsals 3. Swelling over the dorsum of the foot. Reading Radiologist: Antony Obregon MD on 05/06/2018 at 5:52 PM Narrative 05/06/2018 5:[address] right foot, noncontrast DATE: 05/04/2018. INDICATION: [...] PM Percy Velasquez MD CT ORDERABLES * WY BIOPSY, EACH ADDED LESION, WY BIOPSY OF SKIN LESION (04/12/2018 3:17 PM [facility]) Narrative Donna Sanford MD - 04/12/2018 3:17 PM [facility] Josiah Godwin MD 04/12/2018 2:01 PM Risks, [...] GICAL ORDERABLES * DERMATOPATHOLOGY (04/12/2018 12:00 AM [facility]) Case Report Dermatopathology Report Case: [id number] Authorizing Provider: Donna Sanford MD Collected: 04/12/2018 12:00 AM Ordering Location: [facility] Received: 04/13/2018 07:44 AM Dermatology Pathologist: Marnie Govea MD Specimens: A) - Skin, right superior elbow B) - Skin, right inferior elbow 1:11 PM [facility] DERMATOPATHOLOGY LABORATORY Final Diagnosis Specimen A. SKIN, right superior elbow: SUPERFICIAL AND DEEP PERIVASCULAR LYMPHOCYTIC INFILTRATE WITH EOSINOPHILS (L98.9) (see microscopic description and comment) Specimen B. SKIN, right inferior elbow: EPIDERMAL NECROSIS SUGGESTIVE OF EXCORIATION (L98.499) SUPERFICIAL PERIVASCULAR LYMPHOCYTIC INFILTRATE WITH EOSINOPHILS (L27.0) (see microscopic description and comment) 1:11 PM [facility] DERMATOPATHOLOGY LABORATORY Clinical History A-B: LP vs ACD vs scabies vs prurigo simplex vs other. 1:11 PM [facility] DERMATOPATHOLOGY LABORATORY Gross Description Specimen A: Received is one formalin filled container labeled with the patient's name and designated right superior elbow. The specimen consists of a punch biopsy measuring 1c4u0jy, bisected. Jar 0. Specimen B: Received is one formalin filled container labeled with the patient's name and designated right inferior elbow. The specimen consists of a punch biopsy measuring 4r6u6rd, bisected. Jar 0. 1:11 PM [facility] DERMATOPATHOLOGY LABORATORY Microscopic Description Specimen A. SKIN, [...] See comment for Specimen A. 1:11 PM [facility] DERMATOPATHOLOGY LABORATORY Disclaimer An external and internal positive and negative controls are appropriate for the histochemical, immunohistochemical and immunofluorescence stain(s) in this case (if any), except where stated explicitly. The performance characteristics of the stain(s) cited in this report were developed and its performance characteristic determined by the Dermatopathology Laboratory at [facility]. These tests need not be, and therefore are not, approved by the [place] Food and Drug Administration. The tests are used for clinical purposes. Billing Codes Specimen Charges Stain Charges 01721 99251 1 1 1:11 PM [facility] DERMATOPATHOLOGY LABORATORY Embedded Images 11/12/201 8 1:11 PM [facility] DERMATOPATHOLOGY LABORATORY Pathology/Cytology TISSUE SPECIMEN FROM SKIN / Unknown 04/12/2018 04/13/2018 7:44 AM [facility] Miscellaneous samples (specimen) TISSUE SPECIMEN FROM SKIN / Unknown 04/12/2018 04/13/2018 7:44 AM [facility] Donna Sanford MD LAB - PATHOLOGY/CYT OLOGY ORDERABLES DERMATOPATHOLOGY LABORATORY [facility] - Department of Dermatology [address] [place] [address], 5th Floor Lab [address] [phone] * (ABNORMAL) CBC W/O DIFFERENTIAL (10/16/2017 3:39 AM CDT) Only the most recent of4 resultswithin the time period is included. WBC 11.2(H) 3.5 - 10.5 10 3/uL 10/16/2017 4:01 AM [facility] RBC 4.08(L) 4.30 - 5.70 10 6/uL 10/16/2017 4:01 AM [facility] Hemoglobin 12.6(L) 13.5 - 17.5 g/dL 10/16/2017 4:01 AM [facility] Hematocrit 37.3(L) 39.0 - 50.0 % 10/16/2017 4:01 AM [facility] MCV 91.4 81.0 - 97.0 fL 10/16/2017 4:01 AM [facility] MCH 30.9 28.0 - 34.0 pg 10/16/2017 4:01 AM [facility] MCHC 33.8 32.0 - 36.0 g/dL 10/16/2017 4:01 AM [facility] Platelet Count 254 150 - 400 10 3/uL 10/16/2017 4:01 AM [facility] RDW-SD 42.8 36.0 - 50.0 fL 10/16/2017 4:01 AM [facility] RDW-CV 12.8 11.2 - 14.8 % 10/16/2017 4:01 AM [facility] MPV 9.6 9.3 - 12.8 fL 10/16/2017 4:01 AM [facility] Blood BLOOD SPECIMEN / Unknown 10/16/2017 3:39 AM CDT 10/16/2017 3:47 AM CDT Tj Montilla MD LAB - HEMATOLOGY ORD ERABLES [facility] [address] [phone] * BASIC METABOLIC PANEL (CALCIUM TOTAL) (10/16/2017 3:39 AM CDT) Only the most recent of4 resultswithin the time period is included. BUN 10 7 - 26 mg/dL 10/16/2017 4:20 AM [facility] Creatinine 0.9 0.6 - 1.2 mg/dL 10/16/2017 4:20 AM [facility] Sodium 139 136 - 145 mmol/L 10/16/2017 4:20 AM [facility] Potassium 3.8 3.5 - 4.5 mmol/L 10/16/2017 4:20 AM [facility] Chloride 104 98 - 107 mmol/L 10/16/2017 4:20 AM [facility] CO2 23 22 - 29 mmol/L 10/16/2017 4:20 AM [facility] Glucose 106 70 - 115 mg/dL 10/16/2017 4:20 AM [facility] Calcium 8.6 8.4 - 10.2 mg/dL 10/16/2017 4:20 AM [facility] Anion Gap 16 8 - 18 10/16/2017 4:20 AM [facility] BUN/Creatinine Ratio 11 7 - 23 10/16/2017 4:20 AM [facility] Osmolality Calculated 287 270 - 300 mOsm/kg 10/16/2017 4:20 AM [facility] eGFR >60 >60 mL/min/1.7 3 m2 10/16/2017 4:20 AM [facility] Blood BLOOD SPECIMEN / Unknown 10/16/2017 3:39 AM CDT 10/16/2017 3:47 AM CDT Tj Montilla MD LAB - CHEMISTRY NORBERTO GALARZA [address] [phone] * [place] ERICA SURGERY (10/12/2017 2:44 PM CDT) Narrative [facility] - 10/12/2017 2:44 PM CDT Fluoroscopy was used for this exam in the OR. Please see the Operative report. Kanu Oliveira DO FLUOROSCOPY ORDERABL ES Performing Organization Address City/[facility]/ZIP Co de Phone Number [facility] * XR ANKLE RIGHT 3VW OR [...] DO DIAGNOSTIC IMAGING O RDERABLES Care Teams Educational Administrator Relationship Specialty Start Date End Date [facility], [address] [place] [phone] PCP - General Physician Underwriter 06/01/17
--- OUTSIDE RECORDS SUMMARY | 2024-07-10 21:56 | XMS_ITS | Referral Summary ---
Author Organization [facility] [employer] Address [address] [place] [address] Care Team Providers Care Director Of Advertising Sales Name Role Phone [facility] C Primary Care Pro vider Source Comments [facility],non-[facility] Affiliates and Associated Physician Practices is amultiple site organization consisting of ambulatory clinics and hospital sitesin [place], [place], [place] and [place]. This disclosure is being madepursuant to the Care Everywhere program and may not contain all information available regarding this patient. Last updated 18.[facility] [employer] Allergies Active Allergy Reactions Criticality Noted Date [...] on file Medical Devices Implanted Type Area Steam Shovel Operating Engineer Device Identifier Shelf Expiration Date Model / Serial / Lot Flor Cellular Bone Matrix 5cc Implanted:Qty: 1 on 10/12/2017 by Kanu Oliveira DO at [facility] [employer] 02/08/2018 BL-1500-00 2 / / [id number] Description:BL-1500-002. Dep [employer]y Synthes Screw 3.5mm 36mm T15 Cortx Slf-Tap Lopro Implanted:Qty: 1 on 10/12/2017 by Kanu Oliveira DO at [facility] Right: Ankle Synthes Usa 02.206.236 / / Screw 3.5mm 6mm 65mm Ft Hex Sm Bone Riaz Implanted:Qty: 1 on 10/12/2017 by Kanu Oliveira DO at [facility] Right: Ankle Synthes Usa 204.865 / / 3.5mm Va-Lcp Medial Column Fusion Plate Implanted:Qty: 1 on 10/12/2017 by Kanu Oliveira DO at [facility] Right: Ankle 02.211.416 / / 3.5mm Va-Lcp Medial Column Fusion Plates, Talus Extension Implanted:Qty: 1 on 10/12/2017 by Kanu Oliveira DO at [facility] Right: Ankle 02.211.420 / / 3.5mm Variable Angle Locking Screws, Self-Tapping, T15 Stardrive Implanted:Qty: 1 on 10/12/2017 by Kanu Oliveira DO at [facility] Right: Ankle Synthes Usa 02.127.132 / / 3.5mm Variable Angle Locking Screws, Self-Tapping, T15 Stardrive Implanted:Qty: 1 on 10/12/2017 by Kanu Oliveira DO at [facility] Right: Ankle Synthes Usa 02.127.148 / / 3.5mm Variable Angle Locking Screws, Self-Tapping, T15 Stardrive Implanted:Qty: 1 on 10/12/2017 by Kanu Oliveira DO at [facility] Right: Ankle Synthes Usa 02.127.160 / / 3.5mm Cortex Screws, Low-Profile Head, Self-Tapping, T15 Stardrive Implanted:Qty: 1 on 10/12/2017 by Kanu Oliveira DO at [facility] Right: Ankle Synthes Usa 02.206.222 / / Vivigen Cellular Bone Matrix 1cc Implanted:Qty: 1 on 10/12/2017 by Knau Oliveira DO at [facility] [employer] 01/13/2018 - [id number] Description:[employer] Vivigen Cellular Bone Matrix 1cc Implanted:Qty: 1 on 10/12/2017 by Kanu Oliveira DO at [facility] [employer] 02/08/2018 [id number] 00 Description:[employer] Vivigen Cellular Bone Matrix 1cc Implanted:Qty: 1 on 10/12/2017 by Kanu Oliveira DO at [facility] [employer] 02/08/2018 [id number] 01 Description:[employer] Cannulated Screw Implanted:Qty: 1 on 10/12/2017 by Kanu Oliveira DO at [facility] Right: Ankle fully threaded 1147-095-6 7 / / Screw Bn 3.5mm 30mm Lcp Ss T15 Periart Implanted:Qty: 1 on 10/12/2017 by Kanu Oliveira DO at [facility] Right: Ankle Synthes Usa 02.127.130 / / Screw 3.5mm 40mm T15 Mtphsl Slf-Tap Lck Implanted:Qty: 2 on 10/12/2017 by Kanu Oliveira DO at [facility] Right: Ankle Synthes Usa 02.127.140 / / Explanted Type Area Steam Shovel Operating Engineer Device Identifier Shelf Expiration Date Model / Serial / Lot 2.8 Mm Compression Wires, 200mm Implanted:Qty: 2 Explanted:Qty: 2 on 10/12/2017 at [facility] Right: Ankle [employer]sa 03.118.030 / / Guide Pin Explanted:Qty: 1 on 10/12/2017 at [facility] Right: Ankle 1147-088-0 0 / / Wire K .045in 6in 2 Troc Smth Fx Strl Explanted:Qty: 1 on 10/12/2017 at [facility] Right: Ankle [employer] [id number] / / Advance Directives * Full Code (Latest Code Status on File) Date Activated Date Inactivated Comments 10/12/2017 5:38 PM 10/16/2017 5:10 PM * Full Code Date Activated Date Inactivated Comments 10/12/2017 6:17 AM 10/12/2017 5:38 PM Care Teams Director Of Advertising Sales Relationship Specialty Start Date End Date [facility], [facility] [address] [place] [phone] PCP - General Newspaper Illustrator 06/01/17
--- OUTSIDE RECORDS SUMMARY | 2024-07-10 21:56 | XMS_ITS | Encounter Summary ---
Author Organization [facility] Address [address] [place] [address] Care Team Providers Care Painter Foreman Name Role Phone [facility] C Primary Care Pro vider Ronit Crouch PSYCHOTHERAPIST SOCIAL WORKER-ELECTRO MECHANICAL ASSEMBLER Unavailable Encounter Details Date Type Department Care Team (Late st Contact Info) Description 11/02/2018 Telephone [facility] [address] [place] [address] Kanu Oliveira, DO [address] [facility] [address] [place] [address] Social History Tobacco Use Types [...] foot documented in this encounter Care Teams Painter Foreman Relationship Specialty Start Date End Date [facility] [address] [place] [phone] PCP - General Sports Broadcaster 06/01/17 Ronit Crouch, PSYCHOTHERAPIST SOCIAL WORKER-ELECTRO MECHANICAL ASSEMBLER [address] [place] [address] PCP - Attributed-[place] 08/03/20 09/20/22 documented as of this encounter
--- OUTSIDE RECORDS SUMMARY | 2024-07-10 21:56 | XMS_ITS | Encounter Summary ---
Author Organization [facility] Address [address] [facility] [place] [address] Care Team Providers Care Human Services Assistant Name Role Phone [facility] Primary Care Pro vider Ronit Crouch PASTE MIXER LIQUID-MINER HELPER Unavailable Reason for Visit * Reason Onset Date Comments Question 10/05/2018 Encounter Details Date Type Department Care Team (Late st Contact Info) Description 10/05/2018 Telephone [facility] [address] [place] [address] Kanu Oliveira, DO [address] [place] [address] Question Social History Tobacco Use [...] on filedocumented in this encounter Care Teams Human Services Assistant Relationship Specialty Start Date End Date [facility] [address] [place] [phone] PCP - General Hris Coordinator 06/01/17 Ronit Crouch, PASTE MIXER LIQUID-MINER HELPER [address] [place] [phone] PCP - Attributed-[place] 08/03/20 09/20/22 documented as of this encounter
== END 2024-07-10 21:30 | disposition left against medical advice (07) ==
DX: M79.89 Other specified soft tissue disorders (principal)
CPT/HCPCS: 99199